=== PATIENT | female | born 1955 ===

== ENCOUNTER 2019-10-12 15:06 | Emergency (ER) | payer OTHER ==
[~2019-10-12] VITALS: Ht 160 cm; Wt 74.4 kg
[2019-10-12] MEDS ORDERED: OMEGA 3 1,0001 EACH PO (15:55)
[2019-10-12] MEDS ORDERED: V-C FORTE CAPSUL1 MG PO (15:56)
== END 2019-10-12 17:12 | disposition home or self-care (01) ==
LOC: ER 15:06
DX: S91.125A Laceration with foreign body of left lesser toe(s) without damage to nail, initial encounter (principal); W26.0XXA Contact with knife, initial encounter; Y93.89 Activity, other specified; Y92.89 Other specified places as the place of occurrence of the external cause; Y99.8 Other external cause status